=== PATIENT | female | born 1990 | race Caucasian/White ===

== ENCOUNTER 2017-01-27 20:33 | Emergency (ER) | payer OTHER ==
[~2017-01-27] VITALS: Ht 152.4 cm; Wt 58.5 kg
[~2017-01-27 20:33] MED LIST: BACO TOP; HIBICLENS118 ML TOP; ZOFRAN ODT4 MG SL
[2017-01-27 21:49] LABS: BASOPHIL % 0.5 % (0-2); PLATELET COUNT 257 x10^3mcL (130-400)
[2017-01-27 23:27] VITALS: BP 138/55
== END 2017-01-27 23:27 | disposition home or self-care (01) ==
LOC: ED 20:33
PROVIDERS: Emergency Medicine
DX: O03.9 Complete or unspecified spontaneous abortion without complication (principal)
CPT/HCPCS: J1885; J7030; Q0092

== ENCOUNTER 2017-11-20 04:01 | Emergency (ER) | payer OTHER ==
[~2017-11-20] VITALS: Ht 152.4 cm; Wt 66.2 kg
[2017-11-20 04:05] VITALS: Ht 152.4 cm; Wt 66.2 kg
[2017-11-20 05:00] LABS: microscopic required? NO
[2017-11-20 05:05] LABS: BASOPHIL % 0.3 % (0-2); PLATELET COUNT 232 x10^3mcL (130-400)
[2017-11-20 05:12] LABS: RED CELL DISTRIBUTION WIDTH 17.3 % (11.5-14.5)
[2017-11-20 05:19] LABS: UA SPECIFIC GRAVITY 1.015 (1.005-1.035); urine erythrocyte NEGATIVE (NEGATIVE)
[2017-11-20 06:03] VITALS: BP 106/57
== END 2017-11-20 06:03 | disposition home or self-care (01) ==
LOC: ED 04:01
PROVIDERS: Emergency Medicine
DX: O20.0 Threatened abortion (principal); Z3A.10 10 weeks gestation of pregnancy; G43.909 Migraine, unspecified, not intractable, without status migrainosus
CPT/HCPCS: 36415

== ENCOUNTER 2018-01-16 14:22 | Emergency (ER) | payer OTHER ==
[~2018-01-16] VITALS: Ht 152.4 cm; Wt 70.3 kg
[2018-01-16 14:34] VITALS: Ht 152.4 cm; Wt 70.3 kg
[2018-01-16 17:10] LABS: microscopic required? NO
[2018-01-16 17:17] LABS: BASOPHIL % 0.5 % (0-2); PLATELET COUNT 211 x10^3mcL (130-400)
[2018-01-16 17:18] LABS: UA SPECIFIC GRAVITY 1.025 (1.005-1.035); urine erythrocyte NEGATIVE (NEGATIVE)
[2018-01-16 17:18] LABS: RED CELL DISTRIBUTION WIDTH 14.7 % (11.5-14.5)
[2018-01-16 17:27] LABS: CALCIUM 8.5 mg/dL (8.5-10.1); CARBON DIOXIDE 23.8 mmol/L (21-32); CHLORIDE SERUM 107 mmol/L (98-107); CREATININE SERUM 0.4 mg/dL (0.6-1.0); GFR1 > 60 mL/min; GLUCOSE SERUM 89 mg/dL (74-106); POTASSIUM SERUM 3.5 mmol/L (3.5-5.1); SODIUM SERUM 142 mmol/L (136-145)
[2018-01-16 17:32] LABS: ALKALINE PHOSPHATASE 43 U/L (46-116); ALT/SGPT 10 U/L (14-59); AST/SGOT 14 U/L (15-37); BILIRUBIN TOTAL 0.19 mg/dL (0.20-1.00); LIPASE 118 IU/L (73-393); TOTAL PROTEIN, SERUM 6.9 g/dL (6.4-8.2)
[2018-01-16 17:33] LABS: ALBUMIN 2.9 g/dL (3.4-5.0)
[2018-01-16 19:21] LABS: CHOLESTEROL/HDL RATIO 2.8; MAGNESIUM 1.6 mg/dL (1.8-2.4); PHOSPHOROUS 4.7 mg/dL (2.5-4.9)
[2018-01-16 19:29] LABS: T3 TOTAL 2.19 ng/mL
[2018-01-16 19:33] LABS: FREE T4 0.68 ng/dL (0.76-1.46); FREE THYROXINE INDEX 2.1 ug/dL (1.4-4.5); T4(THYROXINE) 9.9 ug/dL (4.7-13.3)
[2018-01-16 20:14] VITALS: BP 110/70
== END 2018-01-16 20:14 | disposition home or self-care (01) ==
LOC: ED 14:22
PROVIDERS: Emergency Medicine; Internal Medicine
DX: O26.892 Other specified pregnancy related conditions, second trimester (principal); R10.31 Right lower quadrant pain; K62.89 Other specified diseases of anus and rectum; R63.0 Anorexia; Z3A.18 18 weeks gestation of pregnancy
CPT/HCPCS: 83880; 84439; J2270; J2765; J7030

== ENCOUNTER 2019-11-13 05:40 | Emergency (ER) | payer OTHER ==
[~2019-11-13] VITALS: Ht 152.4 cm; Wt 83.5 kg
[2019-11-13 05:56] VITALS: Ht 152.4 cm; Wt 83.5 kg
[2019-11-13 06:39] LABS: BASOPHIL % 0.5 % (0-2); PLATELET COUNT 234 x10^3mcL (130-400); RED CELL DISTRIBUTION WIDTH 12.4 % (11.5-14.5)
[2019-11-13 06:58] LABS: ALKALINE PHOSPHATASE 65 U/L (46-116); ALT/SGPT 65 U/L (14-59); AST/SGOT 34 U/L (15-37); BILIRUBIN TOTAL 0.27 mg/dL (0.20-1.00); CARBON DIOXIDE 23.6 mmol/L (21-32); CHLORIDE SERUM 101 mmol/L (98-107); CREATININE SERUM 0.7 mg/dL (0.6-1.0); GFR1 > 60 mL/min; GLUCOSE SERUM 120 mg/dL (74-106); LIPASE 75 IU/L (73-393); POTASSIUM SERUM 3.5 mmol/L (3.5-5.1); SODIUM SERUM 137 mmol/L (136-145); TOTAL PROTEIN, SERUM 6.8 g/dL (6.4-8.2)
[2019-11-13 06:58] LABS: microscopic required? NO
[2019-11-13 07:06] LABS: ALBUMIN 3.2 g/dL (3.4-5.0)
[2019-11-13 07:10] LABS: CALCIUM 8.4 mg/dL (8.5-10.1)
[2019-11-13 07:13] LABS: UA SPECIFIC GRAVITY >=1.030 (1.005-1.035); urine erythrocyte NEGATIVE (NEGATIVE)
[2019-11-13 08:45] VITALS: BP 130/87
== END 2019-11-13 08:45 | disposition home or self-care (01) ==
LOC: ED 05:40
PROVIDERS: Emergency Medicine
DX: R10.31 Right lower quadrant pain (principal); R10.32 Left lower quadrant pain; R19.7 Diarrhea, unspecified; R30.0 Dysuria; Z98.890 Other specified postprocedural states; G43.909 Migraine, unspecified, not intractable, without status migrainosus
CPT/HCPCS: J2405; J3010; J7030